=== PATIENT | female | born 1965 | race Caucasian/White ===

== ENCOUNTER → 2018-02-03 15:00 | Outpatient (CLI) | payer OTHER, SELFPAY | DX: Z23 Encounter for immunization (principal) | CPT/HCPCS: 90471; 90686 ==

== ENCOUNTER → 2019-02-16 15:05 | Outpatient (CLI) | payer OTHER, SELFPAY | DX: Z23 Encounter for immunization (principal) | CPT/HCPCS: 90471; 90686 ==

== ENCOUNTER → 2020-02-15 19:00 | Outpatient (CLI) | payer OTHER, SELFPAY | PROVIDERS: Referring Provider Internal Medicine; Visit Provider Internal Medicine | DX: Z23 Encounter for immunization (principal) | CPT/HCPCS: 90471; 90686 ==

== ENCOUNTER → 2020-06-16 15:47 | Outpatient (CLI) | payer OTHER, SELFPAY ==
[2020-06-16] MEDS: COVID-19 VACC #1, MRNA(MOD) 100 MCG/0.5 ML VIAL IM (15:53)
== END ==
PROVIDERS: Visit Provider Internal Medicine
DX: Z23 Encounter for immunization (principal)
CPT/HCPCS: 0011A; 91301

== ENCOUNTER → 2020-07-21 08:04 | Outpatient (CLI) | payer OTHER, SELFPAY ==
[2020-07-21] MEDS: COVID-19 VACC #2, MRNA(MOD) 100 MCG/0.5 ML VIAL IM (08:32)
== END ==
PROVIDERS: Visit Provider Internal Medicine
DX: Z23 Encounter for immunization (principal)
CPT/HCPCS: 0012A; 91301

== ENCOUNTER → 2021-02-22 | Outpatient (CLI) | payer OTHER, SELFPAY | PROVIDERS: Referring Provider Internal Medicine; Visit Provider Internal Medicine | DX: Z23 Encounter for immunization (principal) | CPT/HCPCS: 90471; 90686 ==

== ENCOUNTER → 2021-03-16 09:02 | Outpatient (CLI) | payer OTHER, SELFPAY ==
[2021-03-16] MEDS: COVID-19 VACC #3, MRNA(MOD) 50 MCG/0.25 ML VIAL IM (09:10)
== END ==
PROVIDERS: Visit Provider Internal Medicine
DX: Z23 Encounter for immunization (principal)
CPT/HCPCS: 0013A; 91301

== ENCOUNTER → 2022-03-01 17:05 | Outpatient (CLI) | payer OTHER, SELFPAY | PROVIDERS: Referring Provider Internal Medicine; Visit Provider Internal Medicine | DX: Z23 Encounter for immunization (principal) | CPT/HCPCS: 90471; 90686 ==

== ENCOUNTER → 2022-09-20 07:31 | Outpatient (CLI) | payer OTHER, SELFPAY ==
[2022-09-20 08:23] LABS: Appearance Urine UA CLEAR; Bilirubin Urine UA NEGATIVE (NEGATIVE); Color Urine UA YELLOW; Glucose Urine UA NEGATIVE (Negative); Ketones Urine UA NEGATIVE (NEGATIVE); Leukocyte Esterase Urine UA NEGATIVE (NEGATIVE); Nitrite Urine UA NEGATIVE (Negative); Occult Blood Urine UA NEGATIVE (Negative); Protein Urine UA NEGATIVE (Negative); Urobilinogen Urine UA 0.2 E.U./dL (0.2)
[2022-09-20 08:24] LABS: pH Urine UA 6.5 (4.5-8.0)
[2022-09-20 08:34] LABS: Bacteria Urine None Seen; RBC Urine 0-1/HPF (0-5/HPF); Squamous Epithelial Cell Urine 0-1 /HPF (0-5/HPF)
[2022-09-20 08:35] LABS: Culture Indicated Urine Cult Not Indicated
[2022-09-20 08:36] LABS: Add Manual Diff / Slide Review NO; Basophils Absolute Auto 0 /uL (0-100); Basophils Percent Auto 0.5 % (0-2); Eosinophils Absolute Auto 200 /uL (0-450); Eosinophils Percent Auto 2.6 % (2-4); Hematocrit 40.8 % (36-46); Hemoglobin 14.1 g/dL (12.0-16.0); Lymphocytes Absolute Auto 1100 /uL (1100-4500); Lymphocytes Percent Auto 18.7 % (25-40); Mean Corpuscular HGB Conc 34.5 % (30-36); Mean Corpuscular Hemoglobin 31.4 PG (26-34); Mean Corpuscular Volume 91.1 fL (80-100); Monocytes Absolute Auto 400 /uL (0-900); Monocytes Percent Auto 7.2 % (3-14); Neutrophils Absolute Auto 4100 /uL (1500-7000); Platelet Count 256 X10^3/uL (150-400); Red Blood Cell Count 4.48 X10^6/uL (4.0-5.2); Red Cell Distribution Width 13.7 % (11.6-14.8); White Blood Cell Count 5.7 X10^3/uL (4.5-11.0)
[2022-09-20 08:37] LABS: WBC Urine 0-1/HPF (0-5/HPF)
[2022-09-20 08:38] LABS: Renal Epithelial Cells Urine 0-1/HPF (0-1/HPF)
[2022-09-20 08:47] LABS: Alanine Aminotransferase 26 IU/L (<35); Albumin 4.3 g/dL (3.5-5.0); Albumin Globulin Ratio 1.5 (1.0-2.8); Alkaline Phosphatase 88 U/L (38-126); Aspartate Aminotransferase 29 IU/L (14-36); BUN Creatinine Ratio 15.3 (6-22); Bilirubin Total 0.5 mg/dL (0.2-1.3); Blood Urea Nitrogen 11 mg/dL (7-17); Calcium 9.1 mg/dL (8.4-10.2); Carbon Dioxide 29 mmol/L (22-32); Chloride 100 mmol/L (98-107); Estimated Glomerular Filt Rate > 60 mL/min (>60); Globulin 2.8 g/dL (1.7-4.1); Glucose 104 mg/dL (70-100); HEMOLYSIS < 15 (0-50); Potassium 4.4 mmol/L (3.4-5.1); Sodium 137 mmol/L (137-145); Total Protein 7.1 g/dL (6.3-8.2)
== END ==
PROVIDERS: Referring Provider Registered Nurse; Visit Provider Registered Nurse
DX: R10.2 Pelvic and perineal pain (principal)
CPT/HCPCS: 36415; 80053; 81001; 85025

== ENCOUNTER 2022-09-20 08:48 | Emergency (ER) | payer OTHER, SELFPAY ==
[2022-09-20 09:04] VITALS: BP 114/75; PULSE 60; RESP 14; TEMP 36.5; O2SAT 100; BMI 22.3
[2022-09-20 09:45] VITALS: BP 123/77; PULSE 73; O2SAT 96
--- NOTE | 2022-09-20 10:41 | ED.ABDPAIN ---
HPI - Abdominal Pain General Chief Complaint: Abdominal Pain Stated Complaint: abd pain Time Seen by Provider: 09/20/22 10:41 Source: patient Mode of arrival: Ambulatory Limitations: no limitations History of Present Illness HPI narrative: This is a 57-year-old female with history of dyslipidemia who presents with lower abdominal/pelvic pain that has been present for several days. Patient states she would an episode about a month ago that lasted for several days and then resolved. Patient states this episode started about 3 days ago it has been persistent without resolution she states movement seems to make it worse particularly trying to extend her body. When she tries to lay flat she states she asked to drop her legs or it is quite painful. She states she was doing some lifting and moving but did not recall an exact injury or trauma. She denies fevers or chills she denies radiation of pain to her upper abdomen or flank. Patient denies any nausea or vomiting. She has not had any dysuria, urgency or frequency. No hematuria. No vaginal bleeding or discharge. Patient states she no longer has menses. No diarrhea, constipation, no black or bloody stools. Patient states she is not had similar symptoms other than a month ago. She had a colonoscopy around age 53 she states it she had a polyp but does not recall any other changes. She is tried [id number] pain medications with minimal improvement. She is had a cholecystectomy denies other abdominal surgeries. No tobacco, rare alcohol, no illicit. Related Data Allergies Allergy/AdvReac Type Severity Reaction Status Date / Time No Known Drug Allergies Allergy Verified 09/20/22 09:07 Review of Systems Review of Systems ROS Unobtainable: All systems reviewed & are unremarkable except as noted in HPI and below Patient History Social History Smoking Status: Unknown if ever smoked Smoking Status: Unknown if ever smoked alcohol intake frequency: holidays/special occasions only Substance Use Type: does not use Exam Narrative Exam Narrative: GENERAL: Alert and oriented x three, female in mild distress. HEENT: Head normocephalic, atraumatic, EOMI, pupils reactive, face symmetric, moist mucous membranes NECK: Supple, full range of motion CARDIOVASCULAR: Regular rate and rhythm without murmurs, rubs or gallops. RESPIRATORY: Breath sounds equal bilaterally, no wheezes rales or rhonchi. ABDOMEN: Soft, patient is tender in the soft tissue just above the pubic bone. She is not particularly tender over the pubic bone itself. She is not tender much higher than this. There is no obvious bulge, mass or change. There is no warmth, erythema or skin changes appreciated.. Normoactive bowel sounds all 4 quadrants. No guarding or rebound, rigidity, no mass. : No CVA tenderness bilaterally. EXTREMITIES: Normal range of motion, no clubbing or edema. Neurovascularly intact NEUROLOGICAL: Cranial nerves II through XII grossly intact. Moving all extremities SKIN: Warm, dry, no petechiae, no rashes or lesions. Initial Vital Signs Initial Vital Signs: Vital Signs Temperature 97.7 F 09/20/22 09:04 Pulse Rate 60 09/20/22 09:04 Respiratory Rate 14 09/20/22 09:04 Blood Pressure 114/75 09/20/22 09:04 Pulse Oximetry 100 09/20/22 09:04 Oxygen Delivery Method Room Air 09/20/22 09:04 Course Orders Ordered: ED Orders 09/20/22 11:04 CT abdomen pelvis w con Stat Vital Signs Vital signs: Vital Signs - 8 hr 09/20/22 12:05 09/20/22 12:06 09/20/22 12:06 Pulse Rate 60 Blood Pressure 118/65 Pulse Oximetry 99 100 MDM - Abdominal Pain Lab Data Labs: Lab Results 09/20/22 Range/Units 07:49 Lipase 91 (23-300) U/L Imaging Data CT scan - abdomen/pelvis: Radiologist's Impression: [address] [address] [address] Scan Report Signed Patient: Macy Hall MR#: [id number] : 1965 Acct:[id number] Age/Sex: 57 / F Date of Service: 09/20/22 Loc: ED Accession Number: [id number] ?? Procedure: CT abdomen pelvis w con Ordering Provider: Ingrid Vargas D.O. PROCEDURE:? CT ABDOMEN PELVIS W CON ? INDICATIONS:? abd pain, soft tissue above pubic bone. ? TECHNIQUE:? After the administration of intravenous contrast, axial sections acquired from the lung bases to the pubic symphysis.? Coronal and sagittal reformats were performed.? For radiation dose reduction, the following was used:? automated exposure control, adjustment of mA and/or kV according to patient size.? ? COMPARISON:? None. ? FINDINGS: ? Image quality:? Excellent.? ? Lung bases:? Unremarkable.? ? Heart:? No significant findings. ? ABDOMEN: Liver:? Liver is unremarkable in appearance without focal intrahepatic abnormalities. No intrahepatic or extrahepatic biliary ductal dilatation.? ? Gallbladder:? Status post cholecystectomy.? ? Biliary ducts:? No intrahepatic or extrahepatic biliary ductal dilatation identified. ? ? ? Pancreas:? Homogeneous enhancement without focal lesions or pancreatic ductal dilatation. ?No peripancreatic inflammation or organized fluid collections.? ? Spleen:? No splenomegaly? ? Adrenal Glands:? Unremarkable.? ? Kidneys and Ureters:? Kidneys are symmetric in size and enhancement, and there is no obstructive uropathy.? No perinephric inflammatory changes. Ureters are normal in course and caliber.? Stomach and Bowel:? Stomach, small bowel loops, and colon are unremarkable.? The appendix is not definitively visualized. However, no secondary findings of acute inflammation are noted in the right lower quadrant. Peritoneum:? No abnormal intraperitoneal fluid.? No free air.? ? Ventral Wall: ? No hernia.? Abdominal Nodes:? No retroperitoneal or mesenteric adenopathy by size criteria.? Vessels:? Aorta and inferior vena cava are normal in size.? ? PELVIS: Pelvic Organs:? Reproductive organs are unremarkable as imaged. Bladder:? Urinary bladder thickness appears normal for degree of distention. No perivesicular inflammatory stranding.? ? Pelvic Nodes: No enlarged lymph nodes.? Miscellaneous: No inguinal hernias are seen. ? ? ? Bones:? No acute osseous abnormalities.? ? No acute compression fracture. ? IMPRESSION:? ? 1. CT abdomen and pelvis without acute abnormalities.? Specifically, no acute abnormalities identified in the suprapubic region to explain patient's symptoms. ? 2. Status post cholecystectomy.? ? ? Dictated by: Devin Sutherland M.D. on 09/20/2022 at 12:02 ? ? Approved by: Devin Sutherland M.D. on 09/20/2022 at 12:08 MDM Narrative Medical decision making narrative: This is a 57-year-old female who presents with complaint of pelvic pain that has been present and persistent for 3 days with 1 prior episode about a month ago for several days that resolved at that time. Patient has been afebrile with no other symptoms such as nausea vomiting no diarrhea constipation black or bloody stools no urinary symptoms. She does not get menses any longer, she has not had any vaginal bleeding or discharge. She is tender just above the pubic bone there is no obvious mass or change. She is not really tender throughout her abdomen otherwise. No flank pain on examination or by history. Labs including CBC, CMP, lipase are negative, urine does not show any major changes. CT imaging does not show any acute changes. Discharge Plan Departure Patient Disposition: Home Clinical Impression: Pelvic pain Instructions: DI for Abdominal Pain-Adult Activity Restrictions/Additional Instructions: Please follow-up for recheck. No clear cause for your symptoms was found today. I hope you continue to feel better. You can continue with Tylenol and/or ibuprofen or NSAIDs as needed for pain. Please return for worsening symptoms, fevers, nausea or vomiting, black or bloody stools, difficulty with urination or other new or concerning changes. Referrals: Marguerite Nur ARNP [Primary Care Provider] - Stand Alone Forms: Patient Portal/API
--- NOTE | 2022-09-20 11:04 | DI.CT.S_ITS ---
PROCEDURE: CT ABDOMEN PELVIS W CON INDICATIONS: abd pain, soft tissue above pubic bone. TECHNIQUE: After the administration of intravenous contrast, axial sections acquired from the lung bases to the pubic symphysis. Coronal and sagittal reformats were performed. For radiation dose reduction, the following was used: automated exposure control, adjustment of mA and/or kV according to patient size. COMPARISON: None. FINDINGS: Image quality: Excellent. Lung bases: Unremarkable. Heart: No significant findings. ABDOMEN: Liver: Liver is unremarkable in appearance without focal intrahepatic abnormalities. No intrahepatic or extrahepatic biliary ductal dilatation. Gallbladder: Status post cholecystectomy. Biliary ducts: No intrahepatic or extrahepatic biliary ductal dilatation identified. Pancreas: Homogeneous enhancement without focal lesions or pancreatic ductal dilatation. No peripancreatic inflammation or organized fluid collections. Spleen: No splenomegaly Adrenal Glands: Unremarkable. Kidneys and Ureters: Kidneys are symmetric in size and enhancement, and there is no obstructive uropathy. No perinephric inflammatory changes. Ureters are normal in course and caliber. Stomach and Bowel: Stomach, small bowel loops, and colon are unremarkable. The appendix is not definitively visualized. However, no secondary findings of acute inflammation are noted in the right lower quadrant. Peritoneum: No abnormal intraperitoneal fluid. No free air. Ventral Wall: No hernia. Abdominal Nodes: No retroperitoneal or mesenteric adenopathy by size criteria. Vessels: Aorta and inferior vena cava are normal in size. PELVIS: Pelvic Organs: Reproductive organs are unremarkable as imaged. Bladder: Urinary bladder thickness appears normal for degree of distention. No perivesicular inflammatory stranding. Pelvic Nodes: No enlarged lymph nodes. Miscellaneous: No inguinal hernias are seen. Bones: No acute osseous abnormalities. No acute compression fracture. IMPRESSION: 1. CT abdomen and pelvis without acute abnormalities. Specifically, no acute abnormalities identified in the suprapubic region to explain patient's symptoms. 2. Status post cholecystectomy. Dictated by: Devin Sutherland M.D. on 09/20/2022 at 12:02 Approved by: Devin Sutherland M.D. on 09/20/2022 at 12:08
[2022-09-20 11:36] LABS: Lipase 91 U/L (23-300)
[2022-09-20 12:05] VITALS: O2SAT 99
[2022-09-20 12:06] VITALS: BP 118/65; PULSE 60; O2SAT 100
== END 2022-09-20 12:25 | disposition home or self-care (01) ==
PROVIDERS: Emergency Provider Emergency Medicine; PCP Nurse Practitioner Family
DX: R10.2 Pelvic and perineal pain (principal)
CPT/HCPCS: 36415; 74177; 80053; 81001; 83690; 85025; 99283; 99284; Q9967

== ENCOUNTER → 2023-02-27 11:27 | Outpatient (CLI) | payer OTHER, SELFPAY | PROVIDERS: PCP Nurse Practitioner Family; Referring Provider Family Medicine; Visit Provider Family Medicine | DX: Z23 Encounter for immunization (principal) | CPT/HCPCS: 90471; 90686 ==

== ENCOUNTER → 2024-02-16 15:27 | Outpatient (CLI) | payer OTHER, SELFPAY | PROVIDERS: PCP Nurse Practitioner Family; Referring Provider Internal Medicine; Visit Provider Internal Medicine | DX: Z23 Encounter for immunization (principal) | CPT/HCPCS: 90471; 90656 ==